=== PATIENT | female | born 1965 | race Caucasian/White ===

== ENCOUNTER → 2017-07-28 | Outpatient (CLI) | payer OTHER ==
[2017-07-30 14:16] LABS: F017-IGE FILBERT 0.41 kU/L (Class I); F018-IGE BRAZIL NUT 0.21 kU/L (Class 0/I); F020-IGE ALMOND 0.58 kU/L (Class II); F023-IGE CRAB 0.18 kU/L (Class 0/I); F024-IGE SHRIMP 1.12 kU/L (Class II); F037-IGE MUSSEL 0.44 kU/L (Class I); F080-IGE LOBSTER <0.10 kU/L (Class 0); F201-IGE PECAN NUT <0.10 kU/L (Class 0); F202-IGE CASHEW NUT 0.25 kU/L (Class 0/I); F203-IGE PISTACHIO NUT 0.45 kU/L (Class I); F256-IGE WALNUT 0.39 kU/L (Class I); F290-IGE OYSTER 0.54 kU/L (Class I); F338-IGE SCALLOP 1.02 kU/L (Class II); F345-IGE MACADAMIA NUT 0.38 kU/L (Class I)
== END ==
LOC: M SMT 11:46
DX: Z91.013 Allergy to seafood (principal); Z91.018 Allergy to other foods
CPT/HCPCS: 82785

== ENCOUNTER → 2017-11-20 | Outpatient (CLI) | payer OTHER | LOC: M RAD 11:04 | DX: J32.0 Chronic maxillary sinusitis (principal); J34.2 Deviated nasal septum ==

== ENCOUNTER → 2018-04-29 | Outpatient (REF) | payer OTHER | LOC: M LAB REF 17:29 | PROVIDERS: ATTEND Nurse Practitioner Family | DX: R21 Rash and other nonspecific skin eruption (principal) ==

== ENCOUNTER → 2018-10-15 | Outpatient (REF) ==
[2018-10-15 18:28] LABS: BASO # 0.1 10^3/uL (0.0-0.2); BASO % 0.7 % (0.0-1.0); EOS # 0.7 10^3/uL (0.0-0.50); EOS % 9.8 % (0.0-3.0); HEMATOCRIT 44.1 % (36.0-47.0); HEMOGLOBIN 14.5 g/dl (12.0-15.5); LYMPH # 2.4 10^3/uL (1.5-4.5); LYMPH % 34.2 % (24.0-44.0); MEAN CORPUSCULAR HEMOGLOBIN 31.7 pg (27.0-33.0); MEAN CORPUSCULAR HGB CONC 32.9 g/dl (32.0-36.5); MEAN CORPUSCULAR VOLUME 96.5 fl (80.0-96.0); MONO # 0.5 10^3/uL (0.0-0.8); MONO % 7.4 % (0.0-5.0); NEUTROPHILS # 3.4 10^3/uL (1.8-7.7); NEUTROPHILS % 47.8 % (36.0-66.0); PLATELET COUNT, AUTOMATED 341 10^3/uL (150-450); RED BLOOD COUNT 4.57 10^6/uL (4.00-5.40); WHITE BLOOD COUNT 7.1 10^3/uL (4.0-10.0)
== END ==
LOC: M LAB REF 17:51
PROVIDERS: ATTEND Allergy & Immunology Allergy
DX: J45.30 Mild persistent asthma, uncomplicated (principal)

== ENCOUNTER → 2021-05-17 | Outpatient (CLI) | payer OTHER ==
[2021-05-17 14:23] LABS: BASO % 0.6 % (0.0-1.0); EOS % 0.8 % (0.0-3.0); HEMATOCRIT 42.6 % (36.0-47.0); HEMOGLOBIN 13.9 g/dl (12.0-15.5); LYMPH # 2.2 10^3/uL (1.5-5.0); LYMPH % 45.3 % (24.0-44.0); MEAN CORPUSCULAR HEMOGLOBIN 30.5 pg (27.0-33.0); MEAN CORPUSCULAR HGB CONC 32.6 g/dl (32.0-36.5); MEAN CORPUSCULAR VOLUME 93.6 fl (80.0-96.0); MONO # 0.4 10^3/uL (0.0-0.8); MONO % 7.5 % (2.0-8.0); NEUTROPHILS # 2.2 10^3/uL (1.5-8.5); NEUTROPHILS % 45.6 % (36.0-66.0); PLATELET COUNT, AUTOMATED 350 10^3/uL (150-450); RED BLOOD COUNT 4.55 10^6/uL (4.00-5.40); WHITE BLOOD COUNT 4.9 10^3/uL (4.0-10.0)
== END ==
LOC: M LAB 13:08
PROVIDERS: ATTEND Internal Medicine Pulmonary Disease
DX: M30.1 Polyarteritis with lung involvement [Churg-Strauss] (principal)

== ENCOUNTER → 2023-03-26 | Outpatient (CLI) | payer OTHER | LOC: M WHC 09:07 | PROVIDERS: ATTEND Internal Medicine | DX: M79.0 Rheumatism, unspecified (principal) ==